=== PATIENT | female | born 1945 | race Caucasian/White ===

== ENCOUNTER 2016-06-17 15:22 | Emergency (ER) | payer OTHER ==
--- NOTE | 2016-06-17 15:29 | PDOC ---
Rapid Medical Evaluation Chief Complaint: Injury Time Seen by Provider: 06/17/16 15:26 Medical Evaluation: Allergies Allergy/AdvReac Type Severity Reaction Status Date / Time Penicillins Allergy Verified 06/17/16 15:24 06/17/16 15:27 I have performed a brief in-person evaluation of this patient. The patient presents with a chief complaint of: s/p mechanical fall with rt facial injury Pertinent physical exam findings: no visual changes, edema to rt cheek and orbit I have ordered the following: facial ct The patient will proceed to the ED for further evaluation.
[2016-06-17 15:32] VITALS: BMI 21.4
--- NOTE | 2016-06-17 18:31 | PDOC ---
History of Present Illness - General History Source: Patient Exam Limitations: No Limitations <Jerry Salgado - Last Filed: 06/17/16 18:31> - General History Source: Patient Exam Limitations: No Limitations - History of Present Illness Initial Comments: 06/17/16 19:20 The patient is a 70-year-old female, with no significant past medical history, who presents to the ED s/p mechanical fall today. Patient was out and tripped, landed on her right knee, and hit the right side of her face. She denies any loss of consciousness or headache. The patient is able to ambulate while in the ER. She first visited Urgent [facility] ([facility]) where she had X-Rays performed of the right knee that demonstrated questionable tibial plateau fracture. The patient was sent to the ER for further evaluation. The patient denies experiencing any other symptoms at this time. <Penny Fletcher - Last Filed: 06/17/16 19:26> - General Chief Complaint: Injury Stated Complaint: FALL/ SWOLLEN FACE (REFERRAL) Time Seen by Provider: 06/17/16 15:26 Past History - Past Medical History Other medical history: none - Psycho/Social/Smoking Cessation Hx Anxiety: No Suicidal Ideation: No Smoking History: Never smoked Have you smoked in the past 12 months: No Information on smoking cessation initiated: No Hx Alcohol Use: No Drug/Substance Use Hx: No Substance Use Type: None <Jerry Salgado - Last Filed: 06/17/16 18:31> <Penny Fletcher - Last Filed: 06/17/16 19:26> - Past Medical History Allergies/Adverse Reactions: Allergies Allergy/AdvReac Type Severity Reaction Status Date / Time Penicillins Allergy Verified 06/17/16 15:24 Home Medications: Ambulatory Orders NK [No Known Home Medication] 06/17/16 Review of Systems - Review of Systems Able to Perform ROS?: Yes Comments:: 06/17/16 19:20 GENERAL/CONSTITUTIONAL: No fever or chills. No weakness. HEAD, EYES, EARS, NOSE AND THROAT: No change in vision. No ear pain or discharge. No sore throat. CARDIOVASCULAR: No chest pain or shortness of breath. RESPIRATORY: No cough, wheezing, or hemoptysis. GASTROINTESTINAL: No nausea, vomiting, diarrhea or constipation. GENITOURINARY: No dysuria, frequency, or change in urination. MUSCULOSKELETAL: No joint or muscle swelling or pain. No neck or back pain. SKIN: No rash NEUROLOGIC: No headache, vertigo, loss of consciousness, or change in strength/ sensation. ENDOCRINE: No increased thirst. No abnormal weight change. HEMATOLOGIC/LYMPHATIC: No anemia, easy bleeding, or history of blood clots. ALLERGIC/IMMUNOLOGIC: No hives or skin allergy. <Penny Fletcher - Last Filed: 06/17/16 19:26> *Physical Exam - Vital Signs Last Vital Signs Temp Pulse Resp BP Pulse Ox 97.7 F 85 18 169/79 99 06/17/16 15:25 06/17/16 15:25 06/17/16 15:25 06/17/16 15:25 06/17/16 15:25 <Jerry Salgado - Last Filed: 06/17/16 18:31> - Vital Signs Last Vital Signs Temp Pulse Resp BP Pulse Ox 97.8 F 16 L 16 145/69 100 06/17/16 18:41 06/17/16 18:41 06/17/16 18:41 06/17/16 18:41 06/17/16 18:41 - Physical Exam Comments: 06/17/16 19:22 GENERAL: Patient is awake, alert and in no acute distress. Speech is clear and appropriate. HEAD: Atraumatic and nontender. HEENT: Pupils are equal round and reactive to light, extraocular movements are intact. The tympanic membranes are clear, no hemotympanum. No nasal septal hematoma. The oropharynx is clear. (+)Right maxilla edema and ecchymosis NECK: The trachea is midline, there is no stridor. There is no midline cervical spine tenderness, full range of motion of neck. CHEST: Non-tender, no ecchymosis or abrasions.Equal chest wall expansion bilaterally. No flail segments. Lungs are clear to auscultation bilaterally. CARDIOVASCULAR: S1-S2, regular rate and rhythm. No murmurs or rubs. ABDOMEN: Soft, nontender, nondistended. Bowel sounds are normoactive. There is no abdominal or flank ecchymosis. BACK/PELVIS: There is no midline thoracic or lumbosacral spine tenderness or step-off. Pelvis is stable and nontender. EXTREMITIES: There is no extremity deformity or joint swelling. No focal bony tenderness throughout. 2+ distal pulses throughout.There is no tenderness to either proximal tibia of the lower extremities. NEURO: Alert and oriented x3. Cranial nerves II through XII are intact. 5 out of 5 motor strength x4 extremities. No gross sensory deficits. Finger-nose- finger is intact. No pronator drift. Gait is stable. SKIN: No abrasions, hematomas, lacerations. PSYCH: Affect is appropriate <Penny Fletcher - Last Filed: 06/17/16 19:26> Medical Decision Making - Medical Decision Making 06/17/16 18:31 A portion of this note was documented by scribe services under my direction. I have reviewed the details of the note, within reason, and agree with the documentation with the following case summary and management plan written by me. Patient treated in the ED. Nursing notes are reviewed and incorporated into the medical decision-making. Vital signs reviewed. Peripheral IV access obtained by the nurse, laboratory studies are drawn and sent, reviewed and interpreted by myself. Vital Signs Temp Pulse Resp BP Pulse Ox 97.7 F 85 18 169/79 99 06/17/16 15:25 06/17/16 15:25 06/17/16 15:25 06/17/16 15:25 06/17/16 15:25 70-year-old female with no past medical history presents with mechanical fall. Patient was out and tripped and let on her right knee and hit her right face. Denies loss of consciousness. Denies headache. Denies any symptoms at this time. She has been ambulatory. She went to an urgent care, [facility], and had x- rays performed of the right knee and demonstrated questionable tibial plateau fracture. The patient was then sent to the ER for further evaluation. However, the patient is ambulatory and no tenderness appreciated over the proximal tibia. Patient does have some right maxillary swelling but her extracted movements are intact and there is no visual daily changes. The CAT scans of the head, maxillofacial, lower extremity is negative for fractures. Patient feels reassured and like to go home. Patient will go home with family. I discussed the physical exam findings, ancillary test results and final diagnoses with the patient. I answered all of the patient's questions. The patient was satisfied with the care received and felt comfortable with the discharge plan and treatment plan. The patient will call their primary care physician within 24 hours to arrange follow-up and will return to the Emergency Department with any new, persistant or worsening symptoms. <Jerry Salgado - Last Filed: 06/17/16 18:31> *DC/Admit/Observation/Transfer - Discharge Dispostion Admit: No <Jerry Salgado - Last Filed: 06/17/16 18:31> - Attestations Scribe Attestion: 06/17/16 19:26 Documentation prepared by Penny Fletcher, acting as medical sales consultant for Jerry Salgado MD. <Penny Fletcher - Last Filed: 06/17/16 19:26> Diagnosis at time of Disposition: Fall Qualifiers: Encounter type: initial encounter Qualified Code(s): W19.XXXA - Unspecified fall, initial encounter - Discharge Dispostion Disposition: HOME Condition at time of disposition: Good - Referrals Referrals: Sandhya Felix [Primary Care Provider] - - Patient Instructions Printed Discharge Instructions: How to Prevent Falls, DI for Closed Head Injury Additional Instructions: Your CT scan of your leg, your head and face is negative for fractures. Take 650 mg tylenol every 4 hours as needed for pain. Elevate the leg as much as you can. Expect the bruising and swelling to be worse before it gets better. Ice several times a day to help with the swelling. Use a thin layer of bacitracin every 12 hours for the next several days. Activity as tolerated. Follow up with your primary care physician. If you have uncontrollable pain, please return to the ER for further evaluation.
[2016-06-17 18:42] VITALS: BP 145/69; PULSE 16; TEMP 97.8
== END 2016-06-17 18:43 | disposition home or self-care (01) ==
LOC: JER 15:22 → JERFT 15:22 → JER 18:43
DX: S00.83XA Contusion of other part of head, initial encounter (principal); S89.81XA Other specified injuries of right lower leg, initial encounter; W18.39XA Other fall on same level, initial encounter; Y93.89 Activity, other specified; Y92.480 Sidewalk as the place of occurrence of the external cause
CPT/HCPCS: 70450-TC; 70486-TC; 73700-TC-RT; 99283-25